=== PATIENT | female | born 1970 | race Caucasian/White ===

== ENCOUNTER → 2020-11-13 | Outpatient (CLI) | payer BC ==
[2020-11-14 08:13] LABS: RHEUMATOID ARTHRITIS FACTOR <10.0 IU/mL (0.0-13.9)
== END ==
LOC: LAB 11:55
PROVIDERS: Nurse Practitioner Family
DX: Z00.00 Encounter for general adult medical examination without abnormal findings (principal); R25.1 Tremor, unspecified
CPT/HCPCS: 36415; 82607; 84443; 85652; 86038; 86431

== ENCOUNTER → 2020-11-30 | Outpatient (CLI) | payer BC | LOC: EMI 13:00 | DX: Z00.00 Encounter for general adult medical examination without abnormal findings (principal); R25.1 Tremor, unspecified | CPT/HCPCS: 70551 ==

== ENCOUNTER → 2020-12-01 | Outpatient (CLI) | payer BC | LOC: CT 10:44 | DX: R94.02 Abnormal brain scan (principal); Q27.30 Arteriovenous malformation, site unspecified; I61.9 Nontraumatic intracerebral hemorrhage, unspecified | CPT/HCPCS: 70496; Q9967 ==

== ENCOUNTER → 2021-02-16 | Outpatient (CLI) | payer BC ==
[2021-02-17 11:14] LABS: RHEUMATOID ARTHRITIS FACTOR <10.0 IU/mL (0.0-13.9)
== END ==
LOC: LAB 09:59
PROVIDERS: Nurse Practitioner Family
DX: D89.9 Disorder involving the immune mechanism, unspecified (principal); M25.50 Pain in unspecified joint; M79.10 Myalgia, unspecified site
CPT/HCPCS: 36415; 82550; 82728; 83520; 84439; 84443; 85652; 86140; 86200; 86431

== ENCOUNTER → 2021-02-18 | Outpatient (CLI) | payer BC | LOC: EMI 12-28 10:00 | DX: R94.02 Abnormal brain scan (principal); J32.0 Chronic maxillary sinusitis | CPT/HCPCS: 70553; A9577 ==

== ENCOUNTER → 2021-03-24 | Outpatient (CLI) | payer BC | LOC: EXRD 13:41 | DX: R06.02 Shortness of breath (principal); R76.8 Other specified abnormal immunological findings in serum | CPT/HCPCS: 71046 ==

== ENCOUNTER → 2021-03-31 | Outpatient (CLI) | payer BC | LOC: HEART 5 11:01 | DX: R76.8 Other specified abnormal immunological findings in serum (principal); R06.02 Shortness of breath | CPT/HCPCS: 94060; 94729 ==

== ENCOUNTER → 2021-08-17 | Outpatient (CLI) | payer BC | LOC: MRI 08:30 | DX: D32.9 Benign neoplasm of meninges, unspecified (principal); I10 Essential (primary) hypertension | CPT/HCPCS: 36415; 70553; 82565; A9577 ==